=== PATIENT | female | born 1955 | race Caucasian/White ===

== ENCOUNTER → 2016-07-12 | Outpatient (CLI) | payer BC ==
[~2016-07-12] MED LIST: ALLEGRA180 MG PO; DELTASONE10 MG PO; FEOSOL325 MG PO; FUROSEMIDE20 MG PO; GLUCOPHAGE500 MG PO; LEVOTHROID(SYN75 MCG PO; NORCO 5-325 MG1 TAB PO; NORVASC5 MG PO; OMEGA PLEX PO; PLAQUENIL200 M1 PO; PLAQUENIL200 MG PO; PRAVACHOL40 MG PO; PRENATAL 1+1)(P1 TAB PO; PRILOSEC20 MG PO; PROZAC20 MG PO; TOPROL XL100 MG PO; TYLENOL/COD#31 TAB PO; VITAMIN D-32000 UNI1 PO; XANAX0.5 MG PO
== END | disposition disaster alternative care site (69) ==
LOC: GRAD 09:20
DX: K76.89 Other specified diseases of liver (principal); K82.4 Cholesterolosis of gallbladder

== ENCOUNTER → 2016-08-26 | Outpatient (CLI) | payer BC | END | disposition disaster alternative care site (69) | LOC: GRAD 12:55 | DX: N20.0 Calculus of kidney (principal) ==

== ENCOUNTER → 2016-09-09 | Outpatient (CLI) | payer BC | END | disposition disaster alternative care site (69) | LOC: GRAD 15:36 | DX: R59.0 Localized enlarged lymph nodes (principal) | CPT/HCPCS: Q9967 ==

== ENCOUNTER → 2016-10-04 | Day surgery (SDC) | payer BC ==
[~2016-10-04] VITALS: Ht 167.6 cm; Wt 64.3 kg
== END ==
LOC: GPOC 10-01 11:00 → GEND 07:57 → GPOC 08:00
PROC: 0DB98ZX Excision of Duodenum, Via Natural or Artificial Opening Endoscopic, Diagnostic (ICD-10-PCS; principal; 2016-10-04)
PROC: 0DB68ZX Excision of Stomach, Via Natural or Artificial Opening Endoscopic, Diagnostic (ICD-10-PCS; 2016-10-04)
PROC: 0DB58ZX Excision of Esophagus, Via Natural or Artificial Opening Endoscopic, Diagnostic (ICD-10-PCS; 2016-10-04)
PROC: 0DBH8ZX Excision of Cecum, Via Natural or Artificial Opening Endoscopic, Diagnostic (ICD-10-PCS; 2016-10-04)
DX: K29.50 Unspecified chronic gastritis without bleeding (principal); D50.9 Iron deficiency anemia, unspecified; K31.9 Disease of stomach and duodenum, unspecified; K44.9 Diaphragmatic hernia without obstruction or gangrene; K57.30 Diverticulosis of large intestine without perforation or abscess without bleeding; K64.9 Unspecified hemorrhoids; F32.9 Major depressive disorder, single episode, unspecified; F41.9 Anxiety disorder, unspecified; G47.30 Sleep apnea, unspecified; E11.9 Type 2 diabetes mellitus without complications; Z87.442 Personal history of urinary calculi; I10 Essential (primary) hypertension; E78.00 Pure hypercholesterolemia, unspecified; Z88.8 Allergy status to other drugs, medicaments and biological substances; Z79.899 Other long term (current) drug therapy; Z98.890 Other specified postprocedural states; E03.9 Hypothyroidism, unspecified
CPT/HCPCS: J2001; J7030